=== PATIENT | male | born 1990 | race Caucasian/White ===

== ENCOUNTER 2024-02-16 13:34 | Emergency (ER) | payer SELFPAY ==
[2024-02-16] VITALS (8 sets, daily range): BP systolic 105–129; BP diastolic 57–83; BMI 25.7
[2024-02-16] MEDS: TYLENOL 1000 MG PO (14:03)
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
== END 2024-02-16 16:34 | disposition home or self-care (01) ==
LOC: EMR 13:34
PROVIDERS: EMERGENCY PHYSICIAN Emergency Medicine; FAMILY PHYSICIAN Family Medicine
DX: S86.812A Strain of other muscle(s) and tendon(s) at lower leg level, left leg, initial encounter (principal); S80.02XA Contusion of left knee, initial encounter; M25.552 Pain in left hip; M54.50 Low back pain, unspecified; M54.6 Pain in thoracic spine; V03.00XA Pedestrian on foot injured in collision with car, pick-up truck or van in nontraffic accident, initial encounter; Y92.410 Unspecified street and highway as the place of occurrence of the external cause; R03.0 Elevated blood-pressure reading, without diagnosis of hypertension; K21.9 Gastro-esophageal reflux disease without esophagitis; F17.200 Nicotine dependence, unspecified, uncomplicated
CPT/HCPCS: 99284; 71046; 72072; 72192; 73502; 73564

== ENCOUNTER → 2024-04-23 13:55 | Outpatient (REF) | payer OTHER, SELFPAY | LOC: RAD 13:55 | PROVIDERS: ATTENDING PHYSICIAN Family Medicine | DX: R61 Generalized hyperhidrosis (principal) | CPT/HCPCS: 71260; 74178; Q9967 ==